=== PATIENT | female | born 2000 | race Caucasian/White ===

== ENCOUNTER 2024-11-29 09:06 | Outpatient (CLI) | payer OTHER, SELFPAY | END 2024-11-29 09:07 | disposition home or self-care (01) | PROVIDERS: Visit Provider Family Medicine | DX: E78.2 Mixed hyperlipidemia (principal); R53.83 Other fatigue; R71.8 Other abnormality of red blood cells; E66.09 Other obesity due to excess calories; F41.1 Generalized anxiety disorder | CPT/HCPCS: 80048; 80061; 82306; 82728; 84443; 85025 ==

== ENCOUNTER 2025-01-16 15:26 | Outpatient (CLI) | payer OTHER, SELFPAY ==
--- NOTE | 2025-02-18 12:28 | W.PM.SLEEP ---
Sleep Study Details Details Interpreting Provider: Pete Date of Sleep Study: 01/16/25 Sleep Study Details: STUDY TYPE:? Home unattended ? BMI:? 41.5 ORDERING PROVIDER:? Kar INDICATION:? Concern for sleep apnea ? SLEEP SUMMARY:? 516 minutes monitored RESPIRATORY SUMMARY:? AHI 5.0 per rule 1A, 1.7 per CMS guideline Low oxygen 90 Snoring 97.7% PERIODIC LIMB MOVEMENTS OF SLEEP:? Not recorded CARDIAC:? Range 48-110, mean 60.1 beats per minute IMPRESSION:? Mild obstructive sleep apnea RECOMMENDATION: Weight loss is recommended. CPAP or dental appliance are both potential treatment options.
== END 2025-01-16 15:27 | disposition home or self-care (01) ==
LOC: SLEEP 15:26
PROVIDERS: PCP Family Medicine; Visit Provider Family Medicine
DX: G47.33 Obstructive sleep apnea (adult) (pediatric) (principal)
CPT/HCPCS: 95806